=== PATIENT | male | born 1990 | race Caucasian/White ===

== ENCOUNTER 2016-07-01 01:47 | Emergency (ER) | payer OTHER ==
[~2016-07-01 01:47] MED LIST: NO HOME MEDICATIONS
[2016-07-01] MEDS ORDERED: NORCO 5/325MG TABLET (BULK) As Ordered ONE (02:34)
--- NOTE | 2016-07-01 02:51 | EDDOCDS ---
Nurse's Notes [facility] Name: Harsh Beaver Age: 26 yrs Sex: Male : 1990 Arrival Date: 07/01/2016 Time: 01:47 Bed TR8 Private MD: Diagnosis: Dental caries Presentation: 07/01 01:57 Presenting complaint: Patient states: both sides of back teeth hurting. Pt has known ko2 cavities that he was put on Augmentin for in May. Pt states he started to feel better so didn't finish the antibiotic. Suicide/Homicide risk assessment- the patient denies having any suicidal and/or homicidal ideations and does not present with any other emotional, behavioral or mental health complaints. Status: Patient is not a hotel guest service agent or dependent. Transition of care: patient was not received from another setting of care. 01:57 Acuity: NIMESH Level 4 ko2 01:57 Method Of Arrival: Walkin/Carried/Asstd ko2 02:04 Adult Sepsis Screening: The patient does not have new or worsening altered mentation. ko2 Patient's respiratory rate is less than 22. Systolic blood pressure is greater than 100. Patient has a qSOFA score of 0- Negative Sepsis Screen. Triage Assessment: 02:00 General: Appears uncomfortable, Behavior is appropriate for age, cooperative. Pain: ko2 Location: mouth Pain currently is 10 out of 10 on a pain scale. HIV screening NA for this visit Offered previously. Neurological: Level of Consciousness is awake, alert. Respiratory: Airway is patent. Derm: Skin is normal. 02:06 EENT: Reports pain Pain is 10 out of 10 on a pain scale. ko2 Historical: - Allergies: No known drug Allergies; - Home Meds: 1. ketorolac 10 mg Oral tab 1 tab (Last dose: 06/30/2016 20:00) 2. ibuprofen 800 mg Oral tab 1 tab 3 times per day as needed - PMHx: none; - PSHx: none; - Social history: Smoking status: Patient uses tobacco products, current every day smoker. No barriers to communication noted, The patient speaks fluent Mexican, Speaks appropriately for age. - Family history: Not pertinent. - : The pt / caregiver states he / she is not on anticoagulants. Home medication list is obtained from the patient. - Exposure Risk Screening:: None identified. Screenin:05 Screening information is obtained from the patient. Fall risk: No risks identified. ko2 Assistance ADL's: requires no assistance with activities of daily living. Abuse/DV Screen: The patient / caregiver reports he/she is: not in a situation that causes fear, pain or injury. Nutritional screening: No deficits noted. Advance Directives: Currently, there is no health care proxy. There is no active DNR order. There is no living will. home support is adequate. Assessment: 02:39 General: Appears in no apparent distress, Behavior is cooperative. Pain: Location: ld5 mouth Pain currently is 10 out of 10 on a pain scale. Neurological: Level of Consciousness is awake, alert. EENT: Reports pain in mouth. Respiratory: Airway is patent Respiratory effort is even, unlabored. Derm: Skin is intact. Vital Signs: 02:01 BP 148 / 90; Pulse 97; Resp 16; Temp 99.2; Pulse Ox 96% ; Weight 54.43 kg; Height 71 ko2 in. (180.34 cm); Pain 10/10; 02:01 Body Mass Index 16.74 (54.43 kg, 180.34 cm) ko2 Vitals: 02:01 Log In Time: July 01, 2016 at 01:47. ko2 ED Course: 01:49 Patient visited by Darren Crooks Reg. pm4 01:49 Patient moved to Waiting pm4 01:55 Patient moved to Triage 1 ko2 01:58 Triage Initiated ko2 02:08 Patient moved to I5 / M5 ld5 02:23 Patient visited by Yaneth Porter RN. ld5 02:23 Phil So PA is PHCP. mo1 02:23 Zachary Alanis DO is Attending Physician. mo1 02:23 The patient / caregiver is instructed regarding the plan of care and ED course. ld5 Accompanied by Family Member, Patient has correct armband on for positive identification. 02:23 No IV's were initiated during this patient's visit. No procedures done that require ld5 assistance. 02:24 Patient visited by Phil So PA. mo1 02:45 Patient visited by Yaneth Porter RN. ld5 02:45 [place] [place] Payment Agreement was scanned into [employer] and attached to record. pm4 02:47 Patient moved to 8 ajs 02:50 Patient visited by Yaneht Porter RN. ld5 Administered Medications: 02:42 Drug: HYDROcodone-acetaminophen 4 pack- 1 packets [hydrocodone 5 mg-acetaminophen 325 ld5 mg tablet (1 tabs)] {Co-Signature: ko2 (Karishma Palma RN).} Route: PO; 02:50 Follow up: Response: Med's dispensed home ld5 Order Results: There are currently no results for this order. Outcome: 02:35 Discharge ordered by Provider. mo1 02:39 Discharge Assessment: Patient awake, alert and oriented x 3. No cognitive and/or ld5 functional deficits noted. Patient verbalized understanding of disposition instructions. patient administered narcotics - yes. Pt provided with safe discharge. The following High Risk Discharge criteria are identified: None. Condition: stable. No special radiology studies were completed. Property :Personal belongings accompany Pt. 02:50 Patient left the ED. ld5 Signatures: Yaneth Porter RN RN ld5 Anastasiia Mann Michael, PA PA mo1 Karishma Palma RN RN ko2 Darren Crooks, Reg Reg pm4 Karishma Palma RN ko2 Corrections: (The following items were deleted from the chart) 02:05 01:57 Presenting complaint: Patient states: both sides of back teeth hurting. Pt has ko2 known cavities ko2 MTDD
--- NOTE | 2016-07-01 02:51 | EDDOCDS ---
Physician Documentation [facility] Name: Harsh Beaver Age: 26 yrs Sex: Male : 1990 Arrival Date: 07/01/2016 Time: 01:47 Bed TR8 Private MD: Disposition: 07/01/16 02:35 Discharged to Home/Self Care. Impression: Dental caries. - Condition is Stable. - Discharge Instructions: Dental Pain. - Prescriptions for Amoxicillin 500 mg Oral Capsule - take 1 capsule by ORAL route every 8 hours for 10 days; 30 tablet. Ibuprofen 800 mg Oral Tablet - take 1 tablet by ORAL route every 8 hours As needed take with food; 30 tablet. - Medication Reconciliation, Local Pharmacy Hours form. - Follow up: Private Physician; When: Call to arrange an appointment; Reason: Recheck today's complaints, Continuance of care. - Problem is new. - Symptoms are unchanged. Historical: - Allergies: No known drug Allergies; - Home Meds: 1. ketorolac 10 mg Oral tab 1 tab (Last dose: 06/30/2016 20:00) 2. ibuprofen 800 mg Oral tab 1 tab 3 times per day as needed - PMHx: none; - PSHx: none; - Social history: Smoking status: Patient uses tobacco products, current every day smoker. No barriers to communication noted, The patient speaks fluent Yoruba, Speaks appropriately for age. - Family history: Not pertinent. - : The pt / caregiver states he / she is not on anticoagulants. Home medication list is obtained from the patient. - Exposure Risk Screening:: None identified. Vital Signs: 07/01 02:01 BP 148 / 90; Pulse 97; Resp 16; Temp 99.2; Pulse Ox 96% ; Weight 54.43 kg / 120 lbs; ko2 Height 71 in. (180.34 cm); Pain 10/10; 02:01 Body Mass Index 16.74 (54.43 kg, 180.34 cm) ko2 MDM: 02:32 HYDROcodone-acetaminophen 4 pack- 5 mg-325 mg 1 packets PO Per package directions; mo1 Dispense with patient. 1 po q4h prn for pain ordered. 02:43 Financial registration complete. pm4 02:45 [facility] Payment Agreement was scanned into [employer] and attached to record. pm4 Administered Medications: 02:42 Drug: HYDROcodone-acetaminophen 4 pack- 1 packets [hydrocodone 5 mg-acetaminophen 325 ld5 mg tablet (1 tabs)] {Co-Signature: ko2 (Karishma Palma RN).} Route: PO; 02:50 Follow up: Response: Med's dispensed home ld5 Signatures: Yaneth Porter RN RN ld5 Phil So PA PA mo1 Karishma Palma RN RN ko2 Darren Crooks, Reg Reg pm4 Karishma [email or web address] The chart was reviewed and I authenticate all verbal orders and agree with the evaluation and treatment provided.Attachments: 02:45 [facility] Payment Agreement pm4 MTDD
--- NOTE | 2016-07-03 03:51 | EDDOCDS ---
Physician Documentation [facility] Name: Harsh Beaver Age: 26 yrs Sex: Male : 1990 Arrival Date: 07/01/2016 Time: 01:47 Bed TR8 Private MD: Disposition: 07/01/16 02:35 Discharged to Home/Self Care. Impression: Dental caries. - Condition is Stable. - Discharge Instructions: Dental Pain. - Prescriptions for Amoxicillin 500 mg Oral Capsule - take 1 capsule by ORAL route every 8 hours for 10 days; 30 tablet. Ibuprofen 800 mg Oral Tablet - take 1 tablet by ORAL route every 8 hours As needed take with food; 30 tablet. - Medication Reconciliation, Local Pharmacy Hours form. - Follow up: Private Physician; When: Call to arrange an appointment; Reason: Recheck today's complaints, Continuance of care. - Problem is new. - Symptoms are unchanged. Historical: - Allergies: No known drug Allergies; - Home Meds: 1. ketorolac 10 mg Oral tab 1 tab (Last dose: 06/30/2016 20:00) 2. ibuprofen 800 mg Oral tab 1 tab 3 times per day as needed - PMHx: none; - PSHx: none; - Social history: Smoking status: Patient uses tobacco products, current every day smoker. No barriers to communication noted, The patient speaks fluent Persian, Speaks appropriately for age. - Family history: Not pertinent. - : The pt / caregiver states he / she is not on anticoagulants. Home medication list is obtained from the patient. - Exposure Risk Screening:: None identified. Vital Signs: 07/01 02:01 BP 148 / 90; Pulse 97; Resp 16; Temp 99.2; Pulse Ox 96% ; Weight 54.43 kg / 120 lbs; ko2 Height 71 in. (180.34 cm); Pain 10/10; 02:01 Body Mass Index 16.74 (54.43 kg, 180.34 cm) ko2 MDM: 02:32 HYDROcodone-acetaminophen 4 pack- 5 mg-325 mg 1 packets PO Per package directions; mo1 Dispense with patient. 1 po q4h prn for pain ordered. 02:43 Financial registration complete. pm4 02:45 [facility] Payment Agreement was scanned into [employer] and attached to record. pm4 14:13 T-Sheet-- Draft Copy was scanned into [employer] and attached to record. gb Administered Medications: 02:42 Drug: HYDROcodone-acetaminophen 4 pack- 1 packets [hydrocodone 5 mg-acetaminophen 325 ld5 mg tablet (1 tabs)] {Co-Signature: ko2 (Karishma Palma RN).} Route: PO; 02:50 Follow up: Response: Med's dispensed home ld5 Signatures: Gayle Brunson, Reg Reg gb Yaneth Porter RN RN ld5 Phil So PA PA mo1 Karishma Palma RN RN ko2 Darren Crooks, Reg Reg pm4 Karishma [email or web address] The chart was reviewed and I authenticate all verbal orders and agree with the evaluation and treatment provided.Attachments: 02:45 [place] [place] Payment Agreement pm4 14:13 T-Sheet-- Draft Copy gb Chart Complete MTDD
--- NOTE | 2016-07-03 03:52 | EDDOCDS ---
Physician Documentation [facility] Name: Harsh Beaver Age: 26 yrs Sex: Male : 1990 Arrival Date: 07/01/2016 Time: 01:47 Bed TR8 Private MD: Disposition: 07/01/16 02:35 Discharged to Home/Self Care. Impression: Dental caries. - Condition is Stable. - Discharge Instructions: Dental Pain. - Prescriptions for Amoxicillin 500 mg Oral Capsule - take 1 capsule by ORAL route every 8 hours for 10 days; 30 tablet. Ibuprofen 800 mg Oral Tablet - take 1 tablet by ORAL route every 8 hours As needed take with food; 30 tablet. - Medication Reconciliation, Local Pharmacy Hours form. - Follow up: Private Physician; When: Call to arrange an appointment; Reason: Recheck today's complaints, Continuance of care. - Problem is new. - Symptoms are unchanged. Historical: - Allergies: No known drug Allergies; - Home Meds: 1. ketorolac 10 mg Oral tab 1 tab (Last dose: 06/30/2016 20:00) 2. ibuprofen 800 mg Oral tab 1 tab 3 times per day as needed - PMHx: none; - PSHx: none; - Social history: Smoking status: Patient uses tobacco products, current every day smoker. No barriers to communication noted, The patient speaks fluent Spanish, Speaks appropriately for age. - Family history: Not pertinent. - : The pt / caregiver states he / she is not on anticoagulants. Home medication list is obtained from the patient. - Exposure Risk Screening:: None identified. Vital Signs: 07/01 02:01 BP 148 / 90; Pulse 97; Resp 16; Temp 99.2; Pulse Ox 96% ; Weight 54.43 kg / 120 lbs; ko2 Height 71 in. (180.34 cm); Pain 10/10; 02:01 Body Mass Index 16.74 (54.43 kg, 180.34 cm) ko2 MDM: 02:32 HYDROcodone-acetaminophen 4 pack- 5 mg-325 mg 1 packets PO Per package directions; mo1 Dispense with patient. 1 po q4h prn for pain ordered. 02:43 Financial registration complete. pm4 02:45 [facility] Payment Agreement was scanned into [employer] and attached to record. pm4 14:13 T-Sheet-- Draft Copy was scanned into [employer] and attached to record. gb Administered Medications: 02:42 Drug: HYDROcodone-acetaminophen 4 pack- 1 packets [hydrocodone 5 mg-acetaminophen 325 ld5 mg tablet (1 tabs)] {Co-Signature: ko2 (Karishma Palma RN).} Route: PO; 02:50 Follow up: Response: Med's dispensed home ld5 Signatures: Gayle Brunson, Reg Reg gb Yaneth Porter RN RN ld5 Phil So PA PA mo1 Karishma Palma RN RN ko2 Darren Crooks, Reg Reg pm4 Karishma [email or web address] The chart was reviewed and I authenticate all verbal orders and agree with the evaluation and treatment provided.Attachments: 02:45 [facility] [place] Payment Agreement pm4 14:13 T-Sheet-- Draft Copy gb Chart Complete MTDD
--- NOTE | 2016-07-03 03:52 | EDDOCDS ---
Nurse's Notes [facility] Name: Harsh Beaver Age: 26 yrs Sex: Male : 1990 Arrival Date: 07/01/2016 Time: 01:47 Bed TR8 Private MD: Diagnosis: Dental caries Presentation: 07/01 01:57 Presenting complaint: Patient states: both sides of back teeth hurting. Pt has known ko2 cavities that he was put on Augmentin for in May. Pt states he started to feel better so didn't finish the antibiotic. Suicide/Homicide risk assessment- the patient denies having any suicidal and/or homicidal ideations and does not present with any other emotional, behavioral or mental health complaints. 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 Transition of care: patient was not received from another setting of care. 01:57 Acuity: NIMESH Level 4 ko2 01:57 Method Of Arrival: Walkin/Carried/Asstd ko2 02:04 Adult Sepsis Screening: The patient does not have new or worsening altered mentation. ko2 Patient's respiratory rate is less than 22. Systolic blood pressure is greater than 100. Patient has a qSOFA score of 0- Negative Sepsis Screen. Triage Assessment: 02:00 General: Appears uncomfortable, Behavior is appropriate for age, cooperative. Pain: ko2 Location: mouth Pain currently is 10 out of 10 on a pain scale. HIV screening NA for this visit Offered previously. Neurological: Level of Consciousness is awake, alert. Respiratory: Airway is patent. Derm: Skin is normal. 02:06 EENT: Reports pain Pain is 10 out of 10 on a pain scale. ko2 Historical: - Allergies: No known drug Allergies; - Home Meds: 1. ketorolac 10 mg Oral tab 1 tab (Last dose: 06/30/2016 20:00) 2. ibuprofen 800 mg Oral tab 1 tab 3 times per day as needed - PMHx: none; - PSHx: none; - Social history: Smoking status: Patient uses tobacco products, current every day smoker. No barriers to communication noted, The patient speaks fluent Chilean, Speaks appropriately for age. - Family history: Not pertinent. - : The pt / caregiver states he / she is not on anticoagulants. Home medication list is obtained from the patient. - Exposure Risk Screening:: None identified. Screenin:05 Screening information is obtained from the patient. Fall risk: No risks identified. ko2 Assistance ADL's: requires no assistance with activities of daily living. Abuse/DV Screen: The patient / caregiver reports he/she is: not in a situation that causes fear, pain or injury. Nutritional screening: No deficits noted. Advance Directives: Currently, there is no health care proxy. There is no active DNR order. There is no living will. home support is adequate. Assessment: 02:39 General: Appears in no apparent distress, Behavior is cooperative. Pain: Location: ld5 mouth Pain currently is 10 out of 10 on a pain scale. Neurological: Level of Consciousness is awake, alert. EENT: Reports pain in mouth. Respiratory: Airway is patent Respiratory effort is even, unlabored. Derm: Skin is intact. Vital Signs: 02:01 BP 148 / 90; Pulse 97; Resp 16; Temp 99.2; Pulse Ox 96% ; Weight 54.43 kg; Height 71 ko2 in. (180.34 cm); Pain 10/10; 02:01 Body Mass Index 16.74 (54.43 kg, 180.34 cm) ko2 Vitals: 02:01 Log In Time: July 01, 2016 at 01:47. ko2 ED Course: 01:49 Patient visited by Darren Crooks Reg. pm4 01:49 Patient moved to Waiting pm4 01:55 Patient moved to Triage 1 ko2 01:58 Triage Initiated ko2 02:08 Patient moved to I5 / M5 ld5 02:23 Patient visited by Yaneth Porter RN. ld5 02:23 Phil So PA is PHCP. mo1 02:23 Zachary Alanis DO is Attending Physician. mo1 02:23 The patient / caregiver is instructed regarding the plan of care and ED course. ld5 Accompanied by Family Member, Patient has correct armband on for positive identification. 02:23 No IV's were initiated during this patient's visit. No procedures done that require ld5 assistance. 02:24 Patient visited by Phil So PA. mo1 02:45 Patient visited by Yaneth Porter RN. ld5 02:45 [facility] [place] Agreement was scanned into [employer] and attached to record. pm4 02:47 Patient moved to 8 ajs 02:50 Patient visited by Yaneth Porter RN. ld5 14:13 T-Sheet-- Draft Copy was scanned into [employer] and attached to record. gb Administered Medications: 02:42 Drug: HYDROcodone-acetaminophen 4 pack- 1 packets [hydrocodone 5 mg-acetaminophen 325 ld5 mg tablet (1 tabs)] {Co-Signature: ko2 (Karishma Palma RN).} Route: PO; 02:50 Follow up: Response: Med's dispensed home ld5 Order Results: There are currently no results for this order. Outcome: 02:35 Discharge ordered by Provider. mo1 02:39 Discharge Assessment: Patient awake, alert and oriented x 3. No cognitive and/or ld5 functional deficits noted. Patient verbalized understanding of disposition instructions. patient administered narcotics - yes. Pt provided with safe discharge. The following High Risk Discharge criteria are identified: None. Condition: stable. No special radiology studies were completed. Property :Personal belongings accompany Pt. 02:50 Patient left the ED. ld5 Signatures: Gayle Brunson, Reg Reg gb Yaneth Porter,RN RN ld5 Anastasiia Mann Michael, PA PA mo1 Karishma Palma RN RN ko2 Darren Crooks, Reg Reg pm4 Karishma Palma RN ko2 Corrections: (The following items were deleted from the chart) 02:05 01:57 Presenting complaint: Patient states: both sides of back teeth hurting. Pt has ko2 known cavities ko2 Chart Complete MTDD
== END 2016-07-01 02:50 | disposition home or self-care (01) ==
LOC: M ED 01:47
DX: K02.9 Dental caries, unspecified (principal); R07.0 Pain in throat; G50.1 Atypical facial pain; F17.200 Nicotine dependence, unspecified, uncomplicated; Z79.899 Other long term (current) drug therapy

== ENCOUNTER → 2016-07-05 | Outpatient (CLI) | payer MEDICAID | LOC: M OUTALCOH 08:00 | PROVIDERS: ATTEND Psychiatry & Neurology Psychiatry | DX: Z13.9 Encounter for screening, unspecified (principal); F11.20 Opioid dependence, uncomplicated ==

== ENCOUNTER → 2016-08-14 | Outpatient (CLI) | payer MEDICAID | LOC: M OUTALCOH 08:47 | PROVIDERS: ATTEND Psychiatry & Neurology Psychiatry | DX: F11.20 Opioid dependence, uncomplicated (principal) ==

== ENCOUNTER 2016-09-04 14:00 | Outpatient (RCR) | payer MEDICAID | END 2016-09-06 | LOC: M OUTALCOH 14:00 | PROVIDERS: ATTEND Psychiatry & Neurology Psychiatry | DX: F11.20 Opioid dependence, uncomplicated (principal); F17.200 Nicotine dependence, unspecified, uncomplicated ==

== ENCOUNTER 2016-10-02 15:00 | Outpatient (RCR) | payer MEDICAID | END 2016-10-06 | LOC: M OUTALCOH 15:00 | PROVIDERS: ATTEND Psychiatry & Neurology Psychiatry | DX: F11.20 Opioid dependence, uncomplicated (principal); F17.200 Nicotine dependence, unspecified, uncomplicated ==

== ENCOUNTER 2016-10-29 21:27 | Emergency (ER) | payer MEDICAID, OTHER ==
[~2016-10-29] VITALS: Ht 177.8 cm; Wt 56.7 kg
[2016-10-29 21:28] VITALS: BP 129/81
[2016-10-29] MEDS ORDERED: SUBO12MI SL (21:40)
== END 2016-10-29 22:49 | disposition left against medical advice (07) ==
LOC: M ED 21:56
DX: M54.9 Dorsalgia, unspecified (principal); Z53.21 Procedure and treatment not carried out due to patient leaving prior to being seen by health care provider

== ENCOUNTER 2016-10-30 13:00 | Outpatient (RCR) | payer MEDICAID ==
[~2016-10-30 13:00] MED LIST changes: +SUBO12MI SL
== END 2016-11-06 ==
LOC: M OUTALCOH 13:00
PROVIDERS: ATTEND Psychiatry & Neurology Psychiatry
DX: F11.20 Opioid dependence, uncomplicated (principal); F17.200 Nicotine dependence, unspecified, uncomplicated

== ENCOUNTER 2016-11-15 13:31 | Outpatient (RCR) | payer MEDICAID | END 2016-12-06 | LOC: M OUTALCOH 13:31 | PROVIDERS: ATTEND Psychiatry & Neurology Psychiatry | DX: F11.20 Opioid dependence, uncomplicated (principal); F17.200 Nicotine dependence, unspecified, uncomplicated ==

== ENCOUNTER → 2016-12-17 | Outpatient (REF) | payer MEDICAID, OTHER ==
[~2016-12-17] MED LIST changes: +AMOX500C PO
[2016-12-28 06:31] LABS: SUMMARY SEE SEPARATE REPORT
== END ==
LOC: M LAB REF 15:30
PROVIDERS: ATTEND Physician Assistant Medical
DX: F15.21 Other stimulant dependence, in remission (principal)

== ENCOUNTER 2016-12-31 19:13 | Emergency (ER) | payer MEDICAID, OTHER ==
[~2016-12-31] VITALS: Ht 177.8 cm; Wt 54.8 kg
[~2016-12-31 19:13] MED LIST changes: -AMOX500C PO
[2016-12-31 19:14] VITALS: BP 123/79
[2016-12-31] MEDS ORDERED: AMOX500C PO (19:26)
== END 2016-12-31 19:36 | disposition home or self-care (01) ==
LOC: M ED 19:13
DX: K02.9 Dental caries, unspecified (principal); J02.9 Acute pharyngitis, unspecified; F17.210 Nicotine dependence, cigarettes, uncomplicated; Z79.899 Other long term (current) drug therapy

== ENCOUNTER 2017-05-02 15:48 | Emergency (ER) | payer OTHER ==
[~2017-05-02] VITALS: Ht 177.8 cm; Wt 54.5 kg
[~2017-05-02 15:48] MED LIST changes: +AMOX500C PO
[2017-05-02 15:53] VITALS: BP 110/60
[2017-05-02] MEDS ORDERED: PENI500T PO (17:10)
[2017-05-02] MEDS ORDERED: IBUP-1022 PO (17:10)
== END 2017-05-02 17:18 | disposition home or self-care (01) ==
LOC: M ED 15:48
DX: K04.7 Periapical abscess without sinus (principal); F17.210 Nicotine dependence, cigarettes, uncomplicated; Z79.899 Other long term (current) drug therapy

== ENCOUNTER 2017-11-30 17:49 | Emergency (ER) | payer OTHER ==
[2017-11-30] MEDS: AUGMENTIN 875 MG TAB PO (18:41)
== END 2017-11-30 19:35 | disposition home or self-care (01) ==
LOC: M ED 17:49
DX: K02.9 Dental caries, unspecified (principal); F17.210 Nicotine dependence, cigarettes, uncomplicated
CPT/HCPCS: 99282

== ENCOUNTER 2020-03-10 09:58 | Emergency (ER) | payer OTHER ==
[~2020-03-10] VITALS: Ht 177.8 cm; Wt 56.8 kg
[2020-03-10 09:58] VITALS: BP 121/78
[~2020-03-10 09:58] MED LIST changes: +AUGM875T28 PO; +IBUP-1022 PO; +PENI500T PO
[2020-03-10] MEDS ORDERED: GABA-1171 (10:07)
[2020-03-10] MEDS ORDERED: SUBO8MIS (10:07)
--- NOTE | 2020-03-10 10:43 | REPVR ---
PROCEDURE INFORMATION: Exam: XR Right Hand Exam date and time: 03/10/2020 10:07 AM Age: 30 years old Clinical indication: Injury or trauma; Other: Punched through glass window of the stove; Laceration; Hand; Right; Additional info: R/O FX, R/O foriegn body TECHNIQUE: Imaging protocol: XR Right hand. Views: 3 or more views. COMPARISON: No relevant prior studies available. FINDINGS: Bones/joints: No acute fracture or dislocation is identified. Soft tissues: There are multiple small radiopaque foreign bodies along the skin and subcutaneous soft tissues over the ulnar aspect, including at the level of the carpus, 5th metacarpal and 5th proximal phalanx. Additional foreign bodies are present in the soft tissues over the dorsal and ulnar aspects of the 3rd finger proximally. IMPRESSION: Multiple foreign bodies over the ulnar aspect of the wrist and proximal hand and 3rd proximal finger, without acute fracture or dislocation identified. Electronically signed by: Phil Melton On 03/10/2020 10:43:51 AM
[2020-03-10] MEDS ORDERED: BOOSTRIX/ADACEL VACCINE (DIPHTH/PERTUSS/ACELL/TETANUS) 0.5ML SYR IM ONE (11:30)
[2020-03-10] MEDS ORDERED: LIDOCAINE 2% MDV 20ML VIAL SC ONE (12:45)
--- NOTE | 2020-03-10 13:45 | REPVR ---
PROCEDURE INFORMATION: Exam: XR Right Hand Exam date and time: 03/10/2020 1:06 PM Age: 30 years old Clinical indication: Condition or disease; Other: Status post foriegn body removal; Additional info: Re-check to see if glass removed dorsal ulnar area TECHNIQUE: Imaging protocol: XR Right hand. Views: 3 or more views. COMPARISON: CR Hand, complete RIGHT 03/10/2020 10:09 AM FINDINGS: Bones/joints: No acute fracture or dislocation is identified. There is again a chronic appearing fracture deformity of the 5th metacarpal. Soft tissues: Most of the foreign bodies appear to have been removed from the soft tissues along the dorsal ulnar aspect over the 5th metacarpal. A few punctate foci remain. There is now some gas in the soft tissues here. Some of the foreign bodies have also been removed from the soft tissues about the proximal aspect of the 3rd finger, with some remaining. IMPRESSION: Removal of most of the foreign bodies over the dorsal ulnar aspect of the 5th metacarpal since earlier the same day, with a few punctate remaining foci. Some foreign bodies also removed from the soft tissues about the proximal aspect of the 3rd finger, with some remaining. Electronically signed by: Phil Melton On 03/10/2020 13:45:10 PM
[2020-03-10] MEDS ORDERED: KEFL500C17 PO (13:58)
--- NOTE | 2020-03-13 07:27 | ED PDOC ---
Post-Departure Follow-Up ezarg and dr juares faxed formal report of right hand for fu Louise Stark MD Mar 13, 2020 07:27
== END 2020-03-10 14:12 | disposition home or self-care (01) ==
LOC: M ED 09:58
DX: S61.421A Laceration with foreign body of right hand, initial encounter (principal); W22.09XA Striking against other stationary object, initial encounter; Y92.090 Kitchen in other non-institutional residence as the place of occurrence of the external cause; F11.11 Opioid abuse, in remission; Z79.891 Long term (current) use of opiate analgesic; F17.210 Nicotine dependence, cigarettes, uncomplicated

== ENCOUNTER 2020-08-26 18:19 | Emergency (ER) | payer OTHER ==
[~2020-08-26] VITALS: Ht 177.8 cm; Wt 56.4 kg
[~2020-08-26 18:19] MED LIST changes: +GABA-1171; +KEFL500C17 PO; +SUBO8MIS
[2020-08-26 19:39] VITALS: BP 118/70
== END 2020-08-26 19:50 | disposition home or self-care (01) ==
LOC: M ED 18:19
DX: I86.1 Scrotal varices (principal); F17.200 Nicotine dependence, unspecified, uncomplicated; F11.10 Opioid abuse, uncomplicated

== ENCOUNTER → 2021-04-13 | Outpatient (CLI) | payer OTHER ==
[2021-04-13 09:32] LABS: BASO % 0.6 % (0.0-1.0); EOS # 0.2 10^3/uL (0.0-0.5); EOS % 2.2 % (0.0-3.0); HEMATOCRIT 43.8 % (42.0-52.0); HEMOGLOBIN 14.6 g/dl (13.5-17.5); LYMPH # 2.7 10^3/uL (1.5-5.0); LYMPH % 39.7 % (24.0-44.0); MEAN CORPUSCULAR HGB CONC 33.3 g/dl (32.0-36.5); MONO # 0.7 10^3/uL (0.0-0.8); MONO % 9.7 % (2.0-8.0); NEUTROPHILS # 3.2 10^3/uL (1.5-8.5); NEUTROPHILS % 47.7 % (36.0-66.0); PLATELET COUNT, AUTOMATED 224 10^3/uL (150-450); RED BLOOD COUNT 4.71 10^6/uL (4.30-6.10); WHITE BLOOD COUNT 6.7 10^3/uL (4.0-10.0)
[2021-04-13 10:13] LABS: ALT/SGPT 23 U/L (12-78); BILIRUBIN,TOTAL 0.5 MG/DL (0.2-1.0); BLOOD UREA NITROGEN 10 MG/DL (7-18); CALCIUM LEVEL 8.9 MG/DL (8.5-10.1); CARBON DIOXIDE LEVEL 31 MEQ/L (21-32); CHLORIDE LEVEL 106 MEQ/L (98-107); CHOLESTEROL LEVEL 182 MG/DL (<200); CREATININE FOR GFR 0.96 MG/DL (0.70-1.30); GLOMERULAR FILTRATION RATE > 60.0 (>60); GLUCOSE, FASTING 91 MG/DL (70-100); HDL CHOLESTEROL 35 MG/DL (>40); LDL CHOLESTEROL 130 MG/DL (<100); NON-HDL-C 147 MG/DL; POTASSIUM SERUM 4.2 MEQ/L (3.5-5.1); SODIUM LEVEL 139 MEQ/L (136-145); THYROID STIMULATING HORMONE 0.869 uIU/ML (0.358-3.740); TOTAL PROTEIN 7.4 GM/DL (6.4-8.2); TRIGLYCERIDES LEVEL 87 MG/DL (<150)
[2021-04-13 11:02] LABS: HEMOGLOBIN A1c 5.5 %
== END ==
LOC: M LAB 08:55
PROVIDERS: ATTEND Nurse Practitioner Family
DX: Z13.220 Encounter for screening for lipoid disorders (principal); F17.200 Nicotine dependence, unspecified, uncomplicated; Z13.29 Encounter for screening for other suspected endocrine disorder; Z13.0 Encounter for screening for diseases of the blood and blood-forming organs and certain disorders involving the immune mechanism; Z86.39 Personal history of other endocrine, nutritional and metabolic disease; L81.9 Disorder of pigmentation, unspecified

== ENCOUNTER 2021-12-24 00:18 | Emergency (ER) | payer OTHER ==
[~2021-12-24] VITALS: Ht 177.8 cm; Wt 65.9 kg
[2021-12-24 01:46] LABS: HEMATOCRIT 40.7 % (42.0-52.0); HEMOGLOBIN 13.8 g/dl (13.5-17.5); MEAN CORPUSCULAR HEMOGLOBIN 31.2 pg (27.0-33.0); MEAN CORPUSCULAR HGB CONC 33.9 g/dl (32.0-36.5); MEAN CORPUSCULAR VOLUME 92.1 fl (80.0-96.0); PLATELET COUNT, AUTOMATED 159 10^3/uL (150-450); RED BLOOD COUNT 4.42 10^6/uL (4.30-6.10); WHITE BLOOD COUNT 15.3 10^3/uL (4.0-10.0)
[2021-12-24 02:28] LABS: RSV AMPLIFICATION NEGATIVE (NEGATIVE)
[2021-12-24 02:33] LABS: AMPHETAMINES LEVEL URINE POSITIVE (NEGATIVE); BARBITURATES URINE NEGATIVE (NEGATIVE); BENZODIAZEPINES URINE POSITIVE (NEGATIVE); CANNABINOIDS URINE POSITIVE (NEGATIVE); COCAINE METABOLITE URINE NEGATIVE (NEGATIVE); METHADONE URINE NEGATIVE (NEGATIVE); OPIATES URINE NEGATIVE (NEGATIVE); PHENCYCLIDINE URINE NEGATIVE (NEGATIVE)
[2021-12-24 02:35] LABS: ACETAMINOPHEN LEVEL < 2.0 UG/ML (10.0-30.0); ALBUMIN 4.3 GM/DL (3.2-5.2); ALT/SGPT 17 U/L (12-78); BILIRUBIN,DIRECT 0.2 MG/DL (0.0-0.2); BILIRUBIN,TOTAL 0.5 MG/DL (0.2-1.0); BLOOD UREA NITROGEN 8 MG/DL (7-18); CALCIUM LEVEL 8.9 MG/DL (8.5-10.1); CARBON DIOXIDE LEVEL 22 MEQ/L (21-32); CHLORIDE LEVEL 105 MEQ/L (98-107); CREATININE FOR GFR 0.86 MG/DL (0.70-1.30); ETHYL ALCOHOL (ETHANOL) 0.003 % (0.000-0.010); GLOMERULAR FILTRATION RATE > 60.0 (>60); GLUCOSE, FASTING 117 MG/DL (70-100); POTASSIUM SERUM 4.2 MEQ/L (3.5-5.1); SALICYLATE LEVEL 5.5 MG/DL (5.0-30.0); SODIUM LEVEL 135 MEQ/L (136-145); TOTAL PROTEIN 7.4 GM/DL (6.4-8.2)
[2021-12-24] MEDS ORDERED: SUBL100I INJ (02:51)
[2021-12-24] MEDS ORDERED: GABA-282 PO (02:51)
[2021-12-24] MEDS ORDERED: med rec comment (02:52)
[2021-12-24] MEDS ORDERED: LORazepam 2 MG TAB PO STA (02:53)
[2021-12-24] MEDS ORDERED: HOME MED LIST COMPLETE! XX SCH (02:55)
[2021-12-24] MEDS ORDERED: NICOTINE 21MG/24HR 1 EA TRANSDERMAL TD ONE (03:20)
[2021-12-24] MEDS ORDERED: ACETAMINOPHEN TAB 650MG DOSE (2X325MG) PO ONE (13:20)
[2021-12-24 18:47] VITALS: BP 145/73
[2021-12-24] MEDS ORDERED: GABAPENTIN 300 MG CAP PO ONE (19:20)
== END 2021-12-24 19:58 | disposition home or self-care (01) ==
LOC: M ED 00:18
DX: F15.129 Other stimulant abuse with intoxication, unspecified (principal)

== ENCOUNTER 2024-06-09 10:47 | Inpatient (IN) | payer MEDICAID, OTHER, SELFPAY ==
[~2024-06-09] VITALS: Ht 177.8 cm; Wt 60.5 kg
[~2024-06-09 10:47] MED LIST changes: +GABA-1172 PO; +SUBL100I INJ; +med rec comment
[2024-06-09] MEDS ORDERED: IBUP200C25 PO (11:25)
[2024-06-09 12:02] LABS: BARBITURATES URINE NEGATIVE (NEGATIVE); BENZODIAZEPINES URINE NEGATIVE (NEGATIVE); COCAINE METABOLITE URINE NEGATIVE (NEGATIVE); METHADONE URINE NEGATIVE (NEGATIVE); OPIATES URINE NEGATIVE (NEGATIVE); PHENCYCLIDINE URINE NEGATIVE (NEGATIVE)
[2024-06-09 12:05] LABS: ETHYL ALCOHOL (ETHANOL) 0.003 % (0.000-0.010)
[2024-06-09 12:07] LABS: ALBUMIN 4.8 G/DL (3.2-5.2); ALKALINE PHOSPHATASE 81 U/L (40-129); ALT/SGPT 25 U/L (7.0-40); AST/SGOT 19 U/L (<34); BILIRUBIN,DIRECT 0.2 MG/DL (<0.4); BILIRUBIN,TOTAL 0.8 MG/DL (0.3-1.2); BLOOD UREA NITROGEN 14 MG/DL (9-23); CALCIUM LEVEL 9.8 MG/DL (8.5-10.1); CARBON DIOXIDE LEVEL 21 MMOL/L (20-31); CHLORIDE LEVEL 105 MMOL/L (98-107); CREATININE FOR GFR 0.89 MG/DL (0.70-1.30); GLOMERULAR FILTRATION RATE > 60.0 (>60); GLUCOSE, FASTING 108 MG/DL (60-100); POTASSIUM SERUM 4.7 MMOL/L (3.5-5.1); SALICYLATE LEVEL < 3.0 MG/DL (<30); SODIUM LEVEL 139 MMOL/L (136-145); TOTAL PROTEIN 8.2 G/DL (5.7-8.2)
[2024-06-09 12:10] LABS: THYROID STIMULATING HORMONE 0.299 uIU/ML (0.55-4.78)
[2024-06-09 12:14] LABS: AMPHETAMINES LEVEL URINE POSITIVE (NEGATIVE); CANNABINOIDS URINE POSITIVE (NEGATIVE)
[2024-06-09 12:23] LABS: HEMATOCRIT 47.2 % (42.0-52.0); HEMOGLOBIN 16.1 g/dl (13.5-17.5); MEAN CORPUSCULAR HGB CONC 34.1 g/dl (32.0-36.5); MEAN CORPUSCULAR VOLUME 90.8 fl (80.0-96.0); PLATELET COUNT, AUTOMATED 279 10^3/uL (150-450); WHITE BLOOD COUNT 6.8 10^3/uL (4.0-10.0)
[2024-06-09] MEDS ORDERED: ACETAMINOPHEN 325 MG TAB PO PRN (13:05)
[2024-06-09] MEDS ORDERED: MAALOX 30 ML SUSP *UDC PO PRN (13:05)
[2024-06-09] MEDS ORDERED: MOM 30ML SUSPENSION UDC PO PRN (13:05)
[2024-06-09 13:55] VITALS: BP 128/82; TEMP 98.2; O2SAT 100
[2024-06-09] MEDS: diphenhydrAMINE 25MG CAP PO PRN (18:29)
[2024-06-09] MEDS: traZODone 50 MG TAB PO PRN (20:13)
[2024-06-10] MEDS ORDERED: HOME MED LIST COMPLETE! XX SCH (06:30)
[2024-06-10 06:36] VITALS: BP 134/88; TEMP 98; O2SAT 96
[2024-06-10] MEDS: IBUPROFEN 400MG TAB PO PRN (08:15)
== END 2024-06-10 13:00 | disposition home or self-care (01) | DRG 753 ==
LOC: M ED 10:47 → M ED INP 13:03 → M PSY 13:42
PROVIDERS: ADMIT Psychiatry & Neurology Psychiatry; ATTEND Psychiatry & Neurology Psychiatry
DX: F39 Unspecified mood [affective] disorder (principal); F15.14 Other stimulant abuse with stimulant-induced mood disorder; F12.10 Cannabis abuse, uncomplicated; Z63.5 Disruption of family by separation and divorce; Z56.0 Unemployment, unspecified; Z63.79 Other stressful life events affecting family and household